=== PATIENT | female | born 1995 | race Caucasian/White ===

== ENCOUNTER 2018-02-06 09:22 | Outpatient (CLI) | payer OTHER ==
--- NOTE | 2018-02-06 10:19 | ULT ---
ULTRASOUND ABDOMEN LIMITED: (RIGHT UPPER QUADRANT) DATE: 02/06/18. HISTORY: A 22-year-old female with nausea, vomiting, rule out gallbladder disease. FINDINGS: The gallbladder has normal wall thickness and has no evidence of gallstones or sludge. The hepatic e chogenicity is normal. The right kidney has normal echogenicity and has no hydronephrosis. The panc reas is visualized, although ultrasound is relatively insensitive for pancreatic pathology compared t o CT and MRI. There is no biliary dilation. The common duct caliber is 2 mm. IMPRESSION: Normal. marcia [] POS: EMILIE
== END 2018-02-06 09:23 | disposition home or self-care (01) ==
LOC: ULT 09:22
PROVIDERS: ATTEND Nurse Practitioner Family
DX: R11.10 Vomiting, unspecified (principal)
CPT/HCPCS: 76705

== ENCOUNTER 2020-10-09 14:57 | Emergency (ER) | payer OTHER ==
[2020-10-10 01:35] LABS: SARS-CoV-2 MS2 Positive; SARS-CoV-2 N Gene Negative; SARS-CoV-2 S Gene Negative; SARS-CoV-2 by NAA Not Detected (NotDetected); SARS-CoV-2 orf1ab Negative
== END 2020-10-09 16:21 | disposition home or self-care (01) ==
LOC: ERS 14:57
DX: R05 Cough (principal); R09.81 Nasal congestion; Z20.828 Contact with and (suspected) exposure to other viral communicable diseases; J45.909 Unspecified asthma, uncomplicated
CPT/HCPCS: 87635; 99283; U0003

== ENCOUNTER 2021-04-24 15:35 | Outpatient (CLI) | payer OTHER | END 2021-04-24 15:36 | disposition home or self-care (01) | LOC: CTENTCT 15:35 | PROVIDERS: ATTEND Otolaryngology Plastic Surgery within the Head & Neck | DX: J32.8 Other chronic sinusitis (principal) | CPT/HCPCS: 70486 ==